=== PATIENT | female | born 1930 | race Caucasian/White ===

== ENCOUNTER 2016-10-05 17:20 | Inpatient (IN) | payer MEDICARE, OTHER, MEDICAID ==
[~2016-10-05] VITALS: Ht 160 cm; Wt 54.5 kg
[2016-10-05] VITALS (7 sets, daily range): BP systolic 196–226; BP diastolic 88–92; PULSE 68–88; RESP 12–26; TEMP 97.6–98.3; O2SAT 96–100
[~2016-10-05 17:20] MED LIST: ACET325 PO; ARIC5TAB PO; DULO20 PO; LISI-360 PO; NAME10TA PO; PROT40TA PO; TRAM50 PO; TRAM50TA PO
--- NOTE | 2016-10-05 18:20 | PD ---
HPI Chief Complaint: GI Complaint Time Seen by Provider: 18:12 Travel History International Travel<30 days: No Contact w/Intl Traveler<30days: No Traveled to known affect area: No History of Present Illness HPI Patient is a 59 female brought in by her son for evaluation of anemia. Per his report 3 months ago patient's hemoglobin was 13 and has been trending down since then. Labs drawn by her primary doctor revealed a hemoglobin of 5.8 the patient was brought to the emergency room for further evaluation. Per her son' s report she has been dizzy, weak and is easily fatigued with ambulation. He states that she has been napping more frequently as well. Son states that she was guaiac positive. Patient is hard of hearing. PFSH Past Medical History Anemia: Yes Arthritis: Yes Cancer: No Cardiovascular Problems: No Diabetes: No Endocrine: No Gastrointestinal Disorders: Yes (GERD, DYSPEPSIA, DYSPHAGIA) Genitourinary: No Hepatitis: No Hiatal Hernia: Yes Hypertension: Yes Immune Disorder: No Musculoskeletal: Yes (scoliosis, kyphosis) Neurologic: Yes (EARLY DEMENTIA) Psychiatric: No Reproductive: No Respiratory: Yes (MILD PULMONARY FIBROSIS) Thyroid Disease: No ?: Not Past Surgical History Abdominal Surgery: Yes (Sai fundoplication, hiatal hernia) AICD: No Body Medical Devices: LUMBAR HARDWARE Cholecystectomy: Yes Eye Surgery: Yes (BUD. CATARACT EXTRACT.) Joint Replacement: Yes (BUD. SHOULDERS, BUD. KNEES) Neurologic Surgery: Yes (MULTI LUMBAR SX'S/ FUSION) Pacemaker: No Other Surgery: Yes Social History Alcohol Use: No Tobacco Use: No Substance Use: No Allergies-Medications (Allergen,Severity, Reaction): Coded Allergies: Fosamax (Unverified Allergy, Severe, ITCH, 10/08/15) Hydrocodone (Unverified Adverse Reaction, Severe, GI SX'S, 10/08/15) Seafood (Unverified Adverse Reaction, Severe, NAUSEA, 10/08/15) Reported Meds & Prescriptions Reported Meds & Active Scripts Active Reported Calcium & Magnesium + Zinc (Potcogx-Smfalypqv-Kzsp) 334-134-5 Mg Tab 1 Tab PO DAILY Lisinopril 10 Mg Tab 10 Mg PO DAILY Centrum Silver Adult 50+ (Multiple Vitamins W/ Minerals) 1 Tab Tab 1 Tab PO DAILY Namenda Xr (Memantine) 28 Mg Caper 28 Mg PO DAILY Tramadol (Tramadol HCl) 50 Mg Tab 50 Mg PO Q4H PRN Pantoprazole (Pantoprazole Sodium) 40 Mg Tab 40 Mg PO BID Donepezil 5 Mg Tab 5 Mg PO HS Cymbalta DR (Duloxetine HCl) 20 Mg Capdr 20 Mg PO DAILY Review of Systems Except as stated in HPI: all other systems reviewed are Neg General / Constitutional: Positive: Other (fatigue) Cardiovascular: Positive: Dyspnea on exertion, No: Chest Pain or Discomfort Respiratory: Positive: Shortness of Breath Gastrointestinal: Positive: Hematochezia, No: Nausea, Vomiting, Abdominal Pain Genitourinary: No: Dysuria Neurologic: Positive: Weakness, Dizziness Physical Exam Narrative GENERAL: Well-developed, well-nourished, elderly female. Resting comfortably in no acute distress. SKIN: Warm and dry. HEAD: Atraumatic. Normocephalic. EYES: Pupils equal and round. No scleral icterus. No injection or drainage. Conjunctival pallor. ENT: No nasal bleeding or discharge. Mucous membranes pink and moist. NECK: Trachea midline. No JVD. CARDIOVASCULAR: Regular rate and rhythm. No murmur appreciated. RESPIRATORY: No accessory muscle use. Coarse breath sounds in bases GASTROINTESTINAL: Abdomen soft, non-tender, nondistended. Hepatic and splenic margins not palpable. MUSCULOSKELETAL: No obvious deformities. No clubbing. No cyanosis. No edema. NEUROLOGICAL: Awake and alert. No obvious cranial nerve deficits. Motor grossly within normal limits. Normal speech. Hard of hearing PSYCHIATRIC: Appropriate mood and affect; insight and judgment normal. Data Data Last Documented VS Vital Signs Date Time Temp Pulse Resp B/P Pulse Ox O2 Delivery O2 Flow Rate FiO2 10/05/16 19:14 66 14 226/92 97 10/05/16 17:26 97.7 Room Air Orders Complete Blood Count With Diff (10/05/16 18:06) Basic Metabolic Panel (Bmp) (10/05/16 18:06) Prothrombin Time / Inr (Pt) (10/05/16 18:06) Act Partial Throm Time (Ptt) (10/05/16 18:06) Type And Screen (10/05/16 18:06) Admit Order (Ed Use Only) (10/05/16 18:44) Red Blood Cells (Rbc) (10/05/16 18:44) Blood Product Administration .UPON TRANSFUSION (10/05/16 18:44) Sodium Chlor 0.9% 250 Ml Inj (Ns 250 Ml (10/05/16 18:45) Inpatient Certification (10/05/16 18:44) Resp Ezpap/Pep Therapy (10/05/16 18:44) Resp Acapella/Pep/Chest Vibra (10/05/16 18:44) Resp Incentive Spirometry (10/05/16 18:44) Magnesium Oxide (Mag-Ox) (10/05/16 18:45) Magnesium Sulfate Inj (Magnesium Sulfate (10/05/16 18:45) Magnesium Sulfate Inj (Magnesium Sulfate (10/05/16 18:45) Potassium Chlor 20 Meq Premix (Kcl 20 Me (10/05/16 18:45) Potassium Chlor 20 Meq Premix (Kcl 20 Me (10/05/16 18:45) Potassium Chlor 40 Meq Premix (Kcl 40 Me (10/05/16 18:45) Potassium Chlor 40 Meq Premix (Kcl 40 Me (10/05/16 18:45) Potassium Cl 40 Meq/30 Ml Liq (Kcl 40 Me (10/05/16 18:45) Potassium Cl 40 Meq/30 Ml Liq (Kcl 40 Me (10/05/16 18:45) Potassium Phosphate (K-Phos) (10/05/16 18:45) Potassium Phosphate (K-Phos) (10/05/16 18:45) Potassium Phosphate Inj (Potassium Phosp (10/05/16 18:45) Sodium Phosphate Inj (Sodium Phosphate I (10/05/16 18:45) ^ Medication Admin Instruction (10/05/16 18:44) ^ Notify Dr: Other (10/05/16 18:44) Bedside Glucose MARYCARMEN.Q6H (10/05/16 18:44) ^ Blood Glucose Goal (Criteria (10/05/16 18:44) ^ Hypoglycemia 51 - 69 Mg/Dl (10/05/16 18:44) ^ Hypoglycemia 50 Mg/Dl Or < (10/05/16 18:44) ^ Notify Dr: Other (10/05/16 18:44) Dextrose 50% In Kelley (Vial) Inj (D50w (Vi (10/05/16 18:45) Insulin Human Reg Supp Scale (Novolin R (10/06/16 00:00) Urinary Catheter Management MARYCARMEN.Q1H (10/05/16 18:44) Cbc No Diff, Includes Plts (10/06/16 05:00) Cbc No Diff, Includes Plts (10/07/16 05:00) Cbc No Diff, Includes Plts (10/08/16 05:00) Cbc No Diff, Includes Plts (10/09/16 05:00) Cbc No Diff, Includes Plts (10/10/16 05:00) Cbc No Diff, Includes Plts (10/11/16 05:00) Cbc No Diff, Includes Plts (10/12/16 05:00) Basic Metabolic Panel (Bmp) (10/06/16 05:00) Basic Metabolic Panel (Bmp) (10/07/16 05:00) Basic Metabolic Panel (Bmp) (10/08/16 05:00) Basic Metabolic Panel (Bmp) (10/09/16 05:00) Basic Metabolic Panel (Bmp) (10/10/16 05:00) Basic Metabolic Panel (Bmp) (10/11/16 05:00) Basic Metabolic Panel (Bmp) (10/12/16 05:00) Code Status (10/05/16 18:44) Vital Signs (Adult) MARYCARMEN.Q1H (10/05/16 18:44) Activity Bed Rest (10/05/16 18:44) ^ Elevate Head Of Bed (10/05/16 18:44) Neuro Checks . ORDERED (10/05/16 18:44) Intake + Output Q1H (10/05/16 18:44) Diet Npo (10/05/16 Dinner) Sodium Chlor 0.9% 1000 Ml Inj (Ns 1000 M (10/05/16 19:00) Sodium Chloride 0.9% Flush (Ns Flush) (10/05/16 18:45) Sodium Chloride 0.9% Flush (Ns Flush) (10/05/16 21:00) Hydromorphone Pf Inj (Dilaudid Pf Inj) (10/05/16 18:45) Pantoprazole Inj (Protonix Inj) (10/05/16 20:00) Ondansetron Inj (Zofran Inj) (10/05/16 18:45) Albuterol-Ipratropium Neb (Duoneb Neb) (10/05/16 18:45) Manager Gallery / Telemetry (10/05/16 18:44) Scd Bilateral/Knee High MARYCARMEN.BID (10/05/16 18:44) Pharmacologic Contraindication (10/05/16 18:44) ^ Initiate Protocol (10/05/16 18:44) ^ Instruction (10/05/16 18:44) [facility] [place] (10/05/16 18:45) Chlorhexidine 2% Cloth (Chlorhexidine 2% (10/06/16 04:00) Chlorhexidine 2% Cloth (Chlorhexidine 2% (10/05/16 18:45) Mrsa Pcr Surveillance (10/05/16 18:44) Hgb & Hct (10/05/16 22:00) Hgb & Hct (10/06/16 02:00) Hgb & Hct (10/06/16 06:00) Hgb & Hct (10/06/16 10:00) Hgb & Hct (10/06/16 14:00) Hgb & Hct (10/06/16 18:00) ^ Consent (10/05/16 19:13) Npo After Midnight W/ Po Meds (10/06/16 Breakfast) ^ Other Nursing Orders (10/05/16 19:15) Magnesium Citrate Liq (Citroma Liq) (10/05/16 19:15) Bisacodyl Ec (Dulcolax Ec) (10/05/16 19:30) Hepatic Functional Panel (10/05/16 19:16) Labs Laboratory Tests Test 10/05/16 18:20 White Blood Count 5.9 TH/MM3 Red Blood Count 2.42 MIL/MM3 Hemoglobin 6.1 GM/DL Hematocrit 19.6 % Mean Corpuscular Volume 81.2 FL Mean Corpuscular Hemoglobin 25.4 PG Mean Corpuscular Hemoglobin 31.3 % Concent Red Cell Distribution Width 16.8 % Platelet Count 351 TH/MM3 Mean Platelet Volume 7.8 FL Neutrophils (%) (Auto) 69.4 % Lymphocytes (%) (Auto) 20.6 % Monocytes (%) (Auto) 9.1 % Eosinophils (%) (Auto) 0.3 % Basophils (%) (Auto) 0.6 % Neutrophils # (Auto) 4.1 TH/MM3 Lymphocytes # (Auto) 1.2 TH/MM3 Monocytes # (Auto) 0.5 TH/MM3 Eosinophils # (Auto) 0.0 TH/MM3 Basophils # (Auto) 0.0 TH/MM3 CBC Comment DIFF FINAL Differential Comment Prothrombin Time 11.1 SEC Prothromb Time International 1.0 RATIO Ratio Activated Partial 25.9 SEC Thromboplast Time Sodium Level 137 MEQ/L Potassium Level 4.3 MEQ/L Chloride Level 102 MEQ/L Carbon Dioxide Level 27.1 MEQ/L Anion Gap 8 MEQ/L Blood Urea Nitrogen 28 MG/DL Creatinine 1.74 MG/DL Estimat Glomerular Filtration 28 ML/MIN Rate Random Glucose 113 MG/DL Calcium Level 8.8 MG/DL MDM Medical Decision Making Medical Screen Exam Complete: Yes Emergency Medical Condition: Yes Medical Record Reviewed: Yes Interpretation(s) Vital Signs Date Time Temp Pulse Resp B/P Pulse Ox O2 Delivery O2 Flow Rate FiO2 10/05/16 17:26 97.7 71 12 218/90 99 Room Air Differential Diagnosis GI bleed versus anemia of chronic disease versus renal failure versus other Narrative Course Patient is an 85-year-old female brought to the emergency for evaluation of anemia. Outpatient hemoglobin was 5.8. Patient has had an abrupt drop in her hemoglobin over the last several weeks. Labs ordered and pending. Dr. Lozano was notified upon patient arrival. He stated at Dr. Henderson, agronomy professor as well as YAW Trimble will evaluate patient emergency department. Discussed in person with Dr. Henderson, agronomy professor who will admit patient to his service, they are concerned due to the abrupt drop in her hemoglobin as well as mental status changes. Dr. Street is also currently evaluating patient in the emergency department. Dr. Henderson is aware of patient's hemoglobin of 6.1. He has placed orders for admission. Diagnosis Primary Impression: Anemia Qualified Code: D64.9 - Anemia, unspecified type Additional Impressions: GI bleed Qualified Code: K92.2 - Gastrointestinal hemorrhage, unspecified gastrointestinal hemorrhage type Mental status change Qualified Code: R41.82 - Altered mental status, unspecified altered mental status type Admitting Information Admitting Physician Requests: Admit Condition: Stable Alisha Gonzalez Cait STARR Oct 05, 2016 18:20
[2016-10-05] MEDS ORDERED: HYDROmorphone HCL PF 1 MG/ML VIAL IV PRN (18:45)
[2016-10-05] MEDS ORDERED: SODIUM CHLOR 0.9% 250 ML INJ 250 ML IV ONE (18:45)
[2016-10-05] MEDS ORDERED: POTASSIUM CHLOR 40 MEQ PREMIX 100 ML IV PRN ×2 (18:45)
[2016-10-05] MEDS ORDERED: POTASSIUM CL 40 MEQ/30 ML LIQ UDC PO/TUBE PRN ×2 (18:45)
[2016-10-05] MEDS ORDERED: POTASSIUM CHLOR 20 MEQ PREMIX 100 ML IV PRN ×2 (18:45)
[2016-10-05] MEDS ORDERED: CHLORHEXIDINE GLUCONATE 2 % 1 PACK (2 CLOTHS) TOP PRN (18:45)
[2016-10-05] MEDS ORDERED: ONDANSETRON HCL 4 MG/2 ML VIAL IV PRN (18:45)
[2016-10-05] MEDS ORDERED: POTASSIUM PHOSPHATE MONOBASIC 500 MG TAB PO PRN (18:45)
[2016-10-05] MEDS ORDERED: DEXTROSE 50% IN WATER 50 ML VIAL(D50) IV PUSH PRN (18:45)
[2016-10-05] MEDS ORDERED: MAGNESIUM SULFATE INJ 2 GM in SODIUM CHLORIDE 0.9% INJ 96 ML IV PRN (18:45)
[2016-10-05] MEDS ORDERED: MISCELLANEOUS NURSING INFORMATION XX SCH (18:45)
[2016-10-05] MEDS ORDERED: RESP: ALBUTEROL 2.5 MG/IPRATROPIUM 0.5 MG NEB (PRN) INH (18:45)
[2016-10-05] MEDS ORDERED: SODIUM PHOSPHATE INJ 30 MMOL in SODIUM CHLOR 0.9% 250 ML INJ 240 ML IV PRN (18:45)
[2016-10-05] MEDS ORDERED: MAGNESIUM OXIDE 400 MG TAB PO PRN (18:45)
[2016-10-05] MEDS ORDERED: POTASSIUM PHOSPHATE INJ 30 MMOL in SODIUM CHLOR 0.9% 250 ML INJ 250 ML IV PRN (18:45)
[2016-10-05] MEDS ORDERED: MAGNESIUM SULFATE INJ 4 GM in SODIUM CHLORIDE 0.9% INJ 92 ML IV PRN (18:45)
[2016-10-05] MEDS ORDERED: POTASSIUM PHOSPHATE MONOBASIC 500 MG TAB PO/TUBE PRN (18:45)
[2016-10-05 18:46] LABS: AUTOMATED NEUTROPHIL # 4.1 TH/MM3 (1.8-7.7); BASOPHIL % 0.6 % (0.0-2.0); EOSINOPHIL % 0.3 % (0.0-4.0); LYMPH % 20.6 % (9.0-44.0); LYMPHOCYTE # 1.2 TH/MM3 (1.0-4.8); MEAN CELL VOLUME 81.2 FL (80.0-100.0); MEAN CORPUSCULAR HEMOGLOBIN 25.4 PG (27.0-34.0); MEAN CORPUSCULAR HGB CONC 31.3 % (32.0-36.0); MONO % 9.1 % (0.0-8.0); NEUT % 69.4 % (16.0-70.0); PLATELET COUNT 351 TH/MM3 (150-450); RED BLOOD COUNT 2.42 MIL/MM3 (4.00-5.30); RED CELL DISTRIBUTION WIDTH 16.8 % (11.6-17.2); WHITE BLOOD COUNT 5.9 TH/MM3 (4.0-11.0)
[2016-10-05 19:02] LABS: APTT (PATIENT) 25.9 SEC (24.3-30.1); PROTHROMBIN TIME - PATIENT 11.1 SEC (9.8-11.6)
[2016-10-05 19:05] LABS: HEMATOCRIT 19.6 % (35.0-46.0); HEMO FLAGS DIFF FINAL
--- NOTE | 2016-10-05 19:08 | HHI.HP ---
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 Today she started having melanotic stools. She went to GI clinic today and was found to reportedly have a Hgb 5.8 , Cr 1.5 (baseline 0.8), BUN 20. The patient is altered and does not have her hearing aids in place, so she cannot participate in the history. However, her son is an event av operator and provides most of the history. she does not have any cardiac history, and has not had any additional recent complaints. Dr. Grant called me and asked that she be direct admitted to the intensive care unit for high concern for an active upper GI bleed. Review of Systems ROS Limitations: Altered Mental Status, Hearing Impaired Past Family Social History Allergies: Coded Allergies: Fosamax (Unverified Allergy, Severe, ITCH, 10/08/15) Hydrocodone (Unverified Adverse Reaction, Severe, GI SX'S, 10/08/15) Seafood (Unverified Adverse Reaction, Severe, NAUSEA, 10/08/15) Past Medical History upper GI bleed hiatal hernia rhumatic lung disease, not on o2 arthritis, bilateral shoulders, bilateral hips GERD HTN Dementia Kyphoscoliosis Past Surgical History recent moshe fundoplication bilateral cataract bilateral shoulder arthroplasties bilateral knee arthroplasty multilevel lumbar fusion Reported Medications Ultram (Tramadol HCl) 50 Mg Tab 50 Mg PO Q6H PRN Cymbalta (Duloxetine HCl) 20 Mg Cap 20 Mg PO DAILY Protonix (Pantoprazole Sodium) 40 Mg Tab 40 Mg PO DAILY Tramadol Hcl (Tramadol HCl) 50 Mg Tab 50 Mg PO Q4H PRN Tylenol (Acetaminophen) 325 Mg Tab 325 Mg PO Q6H PRN Aricept (Donepezil HCl) 5 Mg Tab 5 Mg PO DAILY Namenda (Memantine) 10 Mg Tab 10 Mg PO DAILY Lisinopril 10 mg (Lisinopril) 10 Mg Tab 1 Tab PO DAILY Active Ordered Medications See MAR Family History reviewed and found to be noncontributory to her acute illness Social History denies tob, etoh, doa. Physical Exam Vital Signs Vital Signs Date Time Temp Pulse Resp B/P Pulse Ox O2 Delivery O2 Flow Rate FiO2 10/05/16 17:26 97.7 71 12 218/90 99 Room Air Physical Exam gen: elderly female, lying in bed HEENT: marked pallor. pupils equal, reactive. mucous membranes dry Neck: flat neck veins. trachea midline Chest: equal chest rise, clear to auscultation CV: normal rate, regular rhythm. no appreciable murmurs Abd: soft, nontender, nondistended. no guarding. Extr: no edema. distal pulses 2+ Neuro: RASS -2. follows commands. somnolent but arousable. Laboratory laboratory data are pending. Assessment and Plan Assessment and Plan Assessment: 85yF with history of prior GI bleeds presents with altered mental status and melanotic stools, concern for GI bleed. We will admit to the ICU for close monitoring and serial labs. Given her recent history, I think it is prudent to transfuse 1 unit prbc. Plan: 1. Altered Mental Status -- frequent neuro checks -- likely secondary to GI bleeding and anemia, fatigue -- hold long-acting sedating meds 2. GI bleed -- IV PPI BID -- GI consulted -- 1 unit prbc x 1 now. -- H&H q4h -- NPO -- plan for EGD in AM -- bowel prep 3. Anemia secondary to acute blood loss -- 1 unit prbc -- serial hgb -- goal hgb > 7 -- check coags 4. Dehydration -- NS at 120cc/hr. 5. Acute Kidney Injury -- likely prerenal secondary to dehydration and anemia -- AM BMP -- Crain -- strict I/Os. -- SCDs for DVT prophylaxis. holding pharmacologic DVT prophylaxis given GI bleed. -- protonix for GI prophylaxis. -- Admit to ICU. Code Status Full Code Discussed Condition With Dr. Echevarria, Dr. Parham, family at bedside, bedside RN, SUPERINTENDENT PRESSURE Larry Bingham MD Oct 05, 2016 19:08
[2016-10-05 19:10] LABS: BICARBONATE 27.1 MEQ/L (21.0-32.0); POTASSIUM 4.3 MEQ/L (3.5-5.1)
[2016-10-05] MEDS ORDERED: MULT1TAB PO (19:10)
[2016-10-05] MEDS ORDERED: DONE5TAB7 PO (19:10)
[2016-10-05] MEDS ORDERED: DULO20 PO (19:10)
[2016-10-05] MEDS ORDERED: CALC1TAB53 PO (19:10)
[2016-10-05] MEDS ORDERED: PANT40TA3 PO (19:10)
[2016-10-05] MEDS ORDERED: TRAM50TA PO (19:10)
[2016-10-05] MEDS ORDERED: MEMA28CA PO (19:10)
[2016-10-05] MEDS ORDERED: LISI10TA3 PO (19:10)
[2016-10-05] MEDS ORDERED: BISACODYL EC 5 MG TABEC PO ONE (19:30)
[2016-10-05] MEDS: SODIUM CHLOR 0.9% 1000 ML INJ 1,000 ML IV SCH (19:44)
[2016-10-05] MEDS ORDERED: MAGNESIUM CITRATE SOLN 300 ML BTL PO ONE (19:45)
[2016-10-05] MEDS: PANTOPRAZOLE SODIUM 40 MG VIAL IV SCH (20:43)
[2016-10-05] MEDS: CHLORHEXIDINE GLUCONATE 2 % 1 PACK (2 CLOTHS) TOP SCH (20:43)
[2016-10-05] MEDS: SODIUM CHLORIDE 0.9% FLUSH 5 ML FLUSH IV FLUSH SCH (20:43)
--- NOTE | 2016-10-05 21:12 | MB ---
cc: SHERI MORALES M.D., ALEXANDER S. MD DATE OF CONSULTATION: 10/05/2016 REASON FOR CONSULTATION: Symptomatic anemia. REFERRING PHYSICIAN Dr. Bingham HISTORY OF PRESENT ILLNESS: Ms. Sandy is a very pleasant 85 year-old lady who has no major medical problems, who came to the emergency room for further evaluation of questionable melanotic stools and symptomatic anemia. The patient is hearing impaired at this time does not have her hearing aids. Most of the information is taken from one of her son's who is an hospitality intern. The patient apparently slowly became more weak, short of breath, was noted to be pale in the last few days. Apparently she had a blood count done a few weeks ago with a hemoglobin of 8, which dropped from her baseline which was around 12, which was started to be watched careful. There is also a history of possible weight loss, december 7 to 8 pounds, decreased appetite and oral intake. It is unclear if she had rectal bleed, melanotic stools or any other GI complaints. She had hiatal hernia repair back in September 2015. Apparently at that time she did have an endoscopy and a colonoscopy. Will try to obtain the records from the office. Apparently she recovered well from the surgery with no additional complaints. PAST MEDICAL HISTORY: 1. Large hiatal hernia. 2. High blood pressure. 3. Cataract surgery. 4. Early dementia. 5. Mild pulmonary fibrosis. 6. Reflux. 7. Osteoarthritis. 8. Compression fracture PAST SURGICAL HISTORY Hiatal hernia repair and cholecystectomy, bilateral shoulder repair, bilateral knee replacement. ALLERGIES Fosamax, hydrocodone and seafood. MEDICATIONS At home: 9. Albuterol. 10. Calcium with magnesium. 11. Donepezil. 12. Duloxitane. 13. Lisinopril 14. Namenda 15. Multivitamins. 16. Protonix 17. Tramadol REVIEW OF SYSTEMS Unfortunately cannot be performed properly. The information is taken from the son, so please see history of present illness for details. CLINICAL EXAMINATION She is sitting in bed in no acute distress, pale, frail. VITAL SIGNS: Blood pressure is 110/74, temperature is 97.3, pulse 63, respiratory rate 18. HEENT: PERRLA, pale. Neck: No JVD. No lymphadenopathy. CHEST: Clear to auscultation and palpation. CARDIOVASCULAR: S1-S2, no murmur. ABDOMEN: Soft, nontender. Bowel sounds are present. PERIANESTHESIA NURSE: She is awake, alert, hearing impaired, unable to communicate properly. LABORATORY DATA: Hemoglobin currently is 6.1 with an MCV of 81. A year ago her hemoglobin was 10.8. PT/INR normal. BUN 28, creatinine 1.74. Last year it was 21 and 1.21. No liver enzymes available at this point. Chest x-ray showed minimal bibasilar consistent with scarring, degenerative changes. Scoliosis of the thoracic spine. IMPRESSION: Ms. Sandy is a pleasant 85 year-old lady admitted with symptomatic anemia, questionable GI bleed. The differential includes peptic ulcer disease, telangiectasia, GI malignancy. RECOMMENDATIONS: Upper endoscopy, colonoscopy will be scheduled in the morning as indicate, otherwise Protonix 40 milligrams IV b.i.d., transfuse to keep hemoglobin more than 8, watch H&H closely. Will try to obtain previous endoscopy and colonoscopy report. I would like to thank Dr. Bingham for referring her to our office for consultation. Sheri Morales MD BSB/MATTHEW /7:21 PM /8:54 PM
[2016-10-05 23:18] LABS: INDIRECT BILIRUBIN 0.2 MG/DL (0.0-0.8); TOTAL BILIRUBIN ADULT 0.3 MG/DL (0.2-1.0)
[2016-10-05] MEDS: INSULIN NovoLIN REGULAR SUPPLEMENTAL SCALE SQ SCH (23:26)
[2016-10-05 23:41] LABS: REVIEW FLAG FINAL
[2016-10-05 23:44] LABS: HEMATOCRIT 19.9 % (35.0-46.0)
[2016-10-06] VITALS (16 sets, daily range): BP systolic 169–233; BP diastolic 77–107; PULSE 60–88; RESP 16–28; TEMP 97.8–98.6; O2SAT 96–100
[2016-10-06] MEDS ORDERED: hydrALAZINE HCL 20 MG/ML VIAL IV SCH ×2 (02:30→04:00)
[2016-10-06] MEDS: SODIUM CHLOR 0.9% 1000 ML INJ 1,000 ML IV SCH ×3 (02:45→20:07)
[2016-10-06] MEDS ORDERED: HYDROmorphone HCL PF 1 MG/ML VIAL IV SCH (04:00)
[2016-10-06] MEDS: INSULIN NovoLIN REGULAR SUPPLEMENTAL SCALE SQ SCH ×3 (06:00→18:00)
[2016-10-06] MEDS ORDERED: MAGNESIUM CITRATE SOLN 300 ML BTL PO ONE (06:30)
[2016-10-06] MEDS: hydrALAZINE HCL 20 MG/ML VIAL IV PRN ×6 (07:15→22:47)
[2016-10-06] MEDS: SODIUM CHLORIDE 0.9% FLUSH 5 ML FLUSH IV FLUSH SCH ×2 (08:12→20:09)
[2016-10-06] MEDS: SODIUM CHLORIDE 0.9% FLUSH 5 ML FLUSH IV FLUSH PRN (08:12)
[2016-10-06] MEDS: PANTOPRAZOLE SODIUM 40 MG VIAL IV SCH ×2 (08:12→20:07)
[2016-10-06] MEDS ORDERED: PROMETHAZINE INJ 25 MG/ML VIAL IM ONE (09:30)
[2016-10-06 09:45] LABS: HEMATOCRIT 34.8 % (35.0-46.0); MEAN CELL VOLUME 85.5 FL (80.0-100.0); MEAN CORPUSCULAR HEMOGLOBIN 27.7 PG (27.0-34.0); MEAN CORPUSCULAR HGB CONC 32.4 % (32.0-36.0); PLATELET COUNT 321 TH/MM3 (150-450); RED BLOOD COUNT 4.07 MIL/MM3 (4.00-5.30); REVIEW FLAG FINAL; WHITE BLOOD COUNT 11.2 TH/MM3 (4.0-11.0)
[2016-10-06] MEDS ORDERED: LABETALOL HCL 100 MG/20 ML VIAL IV PUSH PRN (09:45)
[2016-10-06 11:27] LABS: BICARBONATE 29.3 MEQ/L (21.0-32.0)
[2016-10-06 14:23] LABS: HEMATOCRIT 34.5 % (35.0-46.0); REVIEW FLAG FINAL
[2016-10-06] MEDS ORDERED: PROPOFOL 200 MG/20 ML AMP IV ONE (15:44)
[2016-10-06] MEDS ORDERED: DO NOT ADM ANY ANTICOAGULANT DRUGS XX PRN (16:30)
[2016-10-06] MEDS ORDERED: DIATRIZOATE MEGLUM/DIATRIZOATE SOD 9 ML CUP PO ONE (17:00)
[2016-10-06] MEDS ORDERED: SODIUM CHLORID 0.9% 500 ML INJ 500 ML IV ONE (18:15)
--- NOTE | 2016-10-06 21:00 | HHI.CCPN ---
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 Today she started having melanotic stools. She went to GI clinic today and was found to reportedly have a Hgb 5.8 , Cr 1.5 (baseline 0.8), BUN 20. The patient is altered and does not have her hearing aids in place, so she cannot participate in the history. However, her son is an fruit raiser and provides most of the history. she does not have any cardiac history, and has not had any additional recent complaints. Dr. Grant called me and asked that she be direct admitted to the intensive care unit for high concern for an active upper GI bleed. Subjective 10/06: The patient had complaints of nausea unrelieved by Zofran. The patient received Phenergan 6.25mg IM and experienced relief. The patient was noted to have HTN during the day requiring PRN anti-HTN meds.The patient normally takes an ACEI at home, which was held secondary to pending GI procedure with anesthesia Labetalol IV was added to medication regimen. Objective Vital Signs Date Time Temp Pulse Resp B/P Pulse Ox O2 Delivery O2 Flow Rate FiO2 10/06/16 18:00 71 10/06/16 16:55 98.1 12 141/88 99 Nasal Cannula 2 10/05/16 22:09 21 Intake and Output 10/05/16 10/05/16 10/06/16 08:00 16:00 00:00 Intake Total 229 ml Output Total 775 ml Balance -546 ml Result Diagram: 10/06/16 1354 10/06/16 1036 Objective Remarks gen: elderly female, lying in bed HEENT: marked pallor. pupils equal, reactive. mucous membranes dry Neck: flat neck veins. trachea midline Chest: equal chest rise, clear to auscultation CV: normal rate, regular rhythm. no appreciable murmurs Abd: soft, nontender, nondistended. no guarding. Extr: no edema. distal pulses 2+ Neuro: RASS -2. follows commands. somnolent but arousable. Urinary Catheter: Yes Crain insert reason: Measure Accurate Output Vascular Central Line Catheter: No A/P Assessment and Plan Plan: 1. Altered Mental Status-resolved -- Neurochecks per ICU protocol -- GCS 15, responding to questions appropriately, denies pain -- likely secondary to GI bleeding and anemia, fatigue -- Avoid sedatives -Sleep Hygiene 2. GI bleed -- Protonix PPI BID -- GI following Dr. Parham -- S/P 1unit PRBC -- H&H q4h -- NPO -- EGD and Colonoscopy- F/U results --CT abd/Pelvis pending F/U results --Obtain LFT's 3. Anemia secondary to acute blood loss -- 1 unit prbc -- Continue to monitor serial hgb -- Goal maintain Hgb >8 4. Dehydration -- NS at 120cc/hr. 5. Acute Kidney Injury -- likely prerenal secondary to dehydration and anemia --Bolused 500cc NS -- Monitor BMP -- Crain -- strict I/Os. -- SCDs for DVT prophylaxis.No pharmacologic DVT prophylaxis 2/2 GI bleed. -- protonix for GI prophylaxis. 6. HTN --Resume home anti- HTN medication when clinically indicated. CCT 35 mins Physician Joaquina Peters MD Oct 06, 2016 21:00
[2016-10-06 21:36] LABS: HEMATOCRIT 31.9 % (35.0-46.0); REVIEW FLAG FINAL
--- NOTE | 2016-10-06 22:02 | RADRPT ---
EXAM DATE/TIME: 10/06/2016 21:22 [facility] COMPARISON: CHEST SINGLE AP, October 08, 2015, 8:45. INDICATIONS : Melanotic stools and anemia. ORAL CONTRAST: Partial prescribed oral contrast ingested. RADIATION DOSE: 12.41 CTDIvol (mGy) MEDICAL HISTORY : Hernia, hiatal. Hypertension. GI Bleed. SURGICAL HISTORY : Fusion, lumbar. Hiatal hernia repair. ENCOUNTER: Initial ACUITY: 1 day PAIN SCALE: 0/10 LOCATION: Bilateral abdomen TECHNIQUE: Volumetric scanning of the abdomen and pelvis was performed. Using automated exposure control and adjustment of the mA and/or kV according to patient size, radiation dose was kept as low as reasonably achievable to obtain optimal diagnostic quality images. FINDINGS: The liver appears grossly normal. The spleen is small. The pancreas and adrenal glands are unremarkable. There does appear to be global atrophy of the right kidney and compensatory hyper trophy of the left kidney. There is a 2 cm low density mass at the anterior left mid kidney likely r epresenting a focal cyst. Hydronephrosis is not seen. The patient also appears to have a cyst at the lateral right kidney measuring 1.8 cm. Atherosclerotic calcifications are seen throughout the arterial system. There is aneurysmal dilatati on of the distal abdominal aorta measuring 3.3 cm. There does appear to be narrowing of the superior aspect of the ascending colon and hepatic flexure r egion. The transverse colon appears grossly normal. There is some dilatation of the proximal and mi d ascending colon and cecum. A focal mass is not seen. This area appears to be strictured. The smal l bowel is not distended. The structures within the pelvis are grossly intact. There is a Crain catheter in place. There is chr onic interstitial disease at the lung bases. There are degenerative changes throughout the lumbar sp ine. There is a prominent dextrocurvature of the lumbar spine. There is surgical hardware at the lo wer lumbar spine. The bones are osteopenic. CONCLUSION: 1. Apparent narrowing of the distal ascending colon and hepatic flexure region with some dilatation o f the more proximal ascending colon and cecum. This area appears to be possibly strictured. A focal mass is not seen. 2. Degenerative and postoperative change in the lumbar spine. 3. 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 4. Abdominal aortic aneurysm measuring 3.3 cm. There are atherosclerotic calcifications seen through out the arterial system including the coronary arteries. Tommy Stone MD on October 06, 2016 at 21:37 Board Certified Radiologist. This report was verified electronically.
[2016-10-06] MEDS ORDERED: SODIUM CHLORID 0.9% 500 ML INJ 500 ML IV SCH (22:30)
[2016-10-07] VITALS (13 sets, daily range): BP systolic 167–187; BP diastolic 70–87; PULSE 73–102; RESP 18–25; TEMP 98.3–98.7; O2SAT 91–98
[2016-10-07] MEDS: CHLORHEXIDINE GLUCONATE 2 % 1 PACK (2 CLOTHS) TOP SCH (00:09)
[2016-10-07] MEDS: SODIUM CHLOR 0.9% 1000 ML INJ 1,000 ML IV SCH (03:25)
[2016-10-07] MEDS: hydrALAZINE HCL 20 MG/ML VIAL IV PRN ×4 (03:25→21:45)
[2016-10-07] MEDS: INSULIN NovoLIN REGULAR SUPPLEMENTAL SCALE SQ SCH ×4 (05:23→16:59)
[2016-10-07 07:24] LABS: HEMATOCRIT 30.2 % (35.0-46.0); MEAN CELL VOLUME 83.7 FL (80.0-100.0); MEAN CORPUSCULAR HEMOGLOBIN 27.7 PG (27.0-34.0); MEAN CORPUSCULAR HGB CONC 33.1 % (32.0-36.0); PLATELET COUNT 307 TH/MM3 (150-450); RED BLOOD COUNT 3.61 MIL/MM3 (4.00-5.30); RED CELL DISTRIBUTION WIDTH 16.3 % (11.6-17.2); REVIEW FLAG FINAL; WHITE BLOOD COUNT 8.2 TH/MM3 (4.0-11.0)
[2016-10-07 07:36] LABS: BICARBONATE 22.1 MEQ/L (21.0-32.0); MAGNESIUM 2.7 MG/DL (1.5-2.5); POTASSIUM 3.8 MEQ/L (3.5-5.1)
[2016-10-07 07:38] LABS: INDIRECT BILIRUBIN 0.5 MG/DL (0.0-0.8); TOTAL BILIRUBIN ADULT 0.7 MG/DL (0.2-1.0)
[2016-10-07] MEDS: traMADol HCL 50 MG TAB PO PRN (07:57)
[2016-10-07] MEDS: PANTOPRAZOLE SODIUM 40 MG VIAL IV SCH ×2 (07:57→19:51)
[2016-10-07] MEDS: SODIUM CHLORIDE 0.9% FLUSH 5 ML FLUSH IV FLUSH SCH ×2 (09:00→19:51)
[2016-10-07 10:07] LABS: INTERNATIONAL NORMALIZED RATIO 1.1 RATIO; PROTHROMBIN TIME - PATIENT 11.8 SEC (9.8-11.6)
--- NOTE | 2016-10-07 11:30 | HHI.CCPN ---
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 Today she started having melanotic stools. She went to GI clinic today and was found to reportedly have a Hgb 5.8 , Cr 1.5 (baseline 0.8), BUN 20. The patient is altered and does not have her hearing aids in place, so she cannot participate in the history. However, her son is an pcts and provides most of the history. she does not have any cardiac history, and has not had any additional recent complaints. Dr. Grant called me and asked that she be direct admitted to the intensive care unit for high concern for an active upper GI bleed. Subjective 10/06: The patient had complaints of nausea unrelieved by Zofran. The patient received Phenergan 6.25mg IM and experienced relief. The patient was noted to have HTN during the day requiring PRN anti-HTN meds.The patient normally takes an ACEI at home, which was held secondary to pending GI procedure with anesthesia Labetalol IV was added to medication regimen. 10/07 No acute events overnight. Awake an alert. On room air oxygen. Afebrile. H/ H stable Objective Vital Signs Date Time Temp Pulse Resp B/P Pulse Ox O2 Delivery O2 Flow Rate FiO2 10/07/16 06:00 101 10/07/16 04:00 98.4 22 175/70 91 10/06/16 22:47 Nasal Cannula 2.00 10/05/16 22:09 21 Intake and Output 10/06/16 10/06/16 10/07/16 08:00 16:00 00:00 Intake Total 1029 ml 1000 ml 1087 ml Output Total 600 ml 300 ml 100 ml Balance 429 ml 700 ml 987 ml Result Diagram: 10/07/16 0600 10/07/16 0600 Other Results Laboratory Tests Test 10/06/16 10/06/16 10/07/16 10/07/16 13:54 21:15 06:00 09:19 Hemoglobin 11.3 GM/DL 10.5 GM/DL 10.0 GM/DL Hematocrit 34.5 % 31.9 % 30.2 % White Blood Count 8.2 TH/MM3 Red Blood Count 3.61 MIL/MM3 Mean Corpuscular Volume 83.7 FL Mean Corpuscular Hemoglobin 27.7 PG Mean Corpuscular Hemoglobin 33.1 % Concent Red Cell Distribution Width 16.3 % Platelet Count 307 TH/MM3 Mean Platelet Volume 8.1 FL Sodium Level 139 MEQ/L Potassium Level 3.8 MEQ/L Chloride Level 107 MEQ/L Carbon Dioxide Level 22.1 MEQ/L Anion Gap 10 MEQ/L Blood Urea Nitrogen 22 MG/DL Creatinine 1.34 MG/DL Estimat Glomerular Filtration 38 ML/MIN Rate Random Glucose 110 MG/DL Calcium Level 8.6 MG/DL Phosphorus Level 3.1 MG/DL Magnesium Level 2.7 MG/DL Total Bilirubin 0.7 MG/DL Direct Bilirubin 0.2 MG/DL Indirect Bilirubin 0.5 MG/DL Aspartate Amino Transf 21 U/L (AST/SGOT) Alanine Aminotransferase 20 U/L (ALT/SGPT) Alkaline Phosphatase 57 U/L Total Protein 6.8 GM/DL Albumin 3.3 GM/DL Folate GREATER THAN 20.0 NG/ML Prothrombin Time 11.8 SEC Prothromb Time International 1.1 RATIO Ratio Carcinoembryonic Antigen 1.6 NG/ML Imaging Last Impressions Abdomen/Pelvis CT 10/06/16 0000 Signed Impressions: Service Date/Time: September 21:22 - CONCLUSION: 1. Apparent narrowing of the distal ascending colon and hepatic flexure region with some dilatation of the more proximal ascending colon and cecum. This area appears to be possibly strictured. A focal mass is not seen. 2. Degenerative and postoperative change in the lumbar spine. 3. 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 4. Abdominal aortic aneurysm measuring 3.3 cm. There are atherosclerotic calcifications seen throughout the arterial system including the coronary arteries. Tommy Stone MD Objective Remarks GENERAL: Patient is lying in bed in NAD SKIN: Warm and dry. HEAD: Normocephalic. EYES: No scleral icterus. No injection or drainage. NECK: Supple, trachea midline. No JVD or lymphadenopathy. CARDIOVASCULAR: Regular rate and rhythm without murmurs, gallops, or rubs. RESPIRATORY: Breath sounds equal bilaterally. No accessory muscle use. GASTROINTESTINAL: Abdomen soft, non-tender, nondistended. MUSCULOSKELETAL: No cyanosis, or edema. Neuro: Awake and alert A/P Assessment and Plan 1)Resp Insuff 2)Altered Mental Status-resolved 3)GI bleed 4)Anemia 5)HTN 6)DWAIN- improved. --Likely prerenal secondary to dehydration and anemia Plan Neuro: Monitor neuro status and avoid sedatives -- Neurochecks per ICU protocol -- GCS 15, responding to questions appropriately, denies pain Pulm: Oxygen PRN to keep sat >92% CV: Place on Lopressor 12.5mg Q!2- Monitor HR and BP keep MAP>65mmHg : Monitor renal function, I/O's, electrolytes replacement per protocol d/c IVF GI: On PO diet, Protonix 40mg IV Q12 GI is following. s/p EGD/colonoscopy( followup on results) Heme: Monitor CBC -- S/P 1unit PRBC Endo: SSI if needed for glycemic control -- SCDs for DVT prophylaxis.No pharmacologic DVT prophylaxis 2nd GI bleed. -- Protonix for GI prophylaxis. PT/OT eval and treat Will sign off and transfer care to [facility] Level 3 Blu Casillas MD Oct 07, 2016 11:30
--- NOTE | 2016-10-07 15:31 | HHI.GIFU ---
GI Follow-up Note Consult Follow-up Subjective: Patient laying in bed comfortably, no bleeding , ct noted.In chair , no complaints, poor appetite Objective: PHYSICAL EXAMINATION: Vitals signs stable No fever Vital Signs Date Time Temp Pulse Resp B/P Pulse Ox O2 Delivery O2 Flow Rate FiO2 10/07/16 14:00 91 10/07/16 12:00 84 10/07/16 12:00 98.6 84 20 171/74 98 10/07/16 10:00 98 10/07/16 08:00 98.7 102 18 167/76 95 10/07/16 08:00 Nasal Cannula 2.00 HEENT: Pupils round and reactive to light; normocephalic; atraumatic; no jaundice. Throat is clear. NECK: Neck is supple, no JVD, no lymphadenopathy. CHEST: Chest is clear to auscultation and percussion. CARDIAC: Regular rate and rhythm with no murmur gallop or rubs. ABDOMEN: Soft, nondistended, nontender; no hepatosplenomegaly; bowel sounds are present in all four quadrants. EXTREMITIES: No clubbing, cyanosis, or edema. SKIN: Normal; no rash; no jaundice. PUMPMAN: No focal deficits; Available Data (labs, X- Rays, Procedues) : Laboratory Tests Test 10/05/16 10/05/16 10/05/16 10/05/16 18:18 18:20 19:23 20:05 Antibody Identification Anti-M White Blood Count 5.9 TH/MM3 Red Blood Count 2.42 MIL/MM3 Hemoglobin 6.1 GM/DL Hematocrit 19.6 % Mean Corpuscular Volume 81.2 FL Mean Corpuscular Hemoglobin 25.4 PG Mean Corpuscular Hemoglobin 31.3 % Concent Red Cell Distribution Width 16.8 % Platelet Count 351 TH/MM3 Mean Platelet Volume 7.8 FL Neutrophils (%) (Auto) 69.4 % Lymphocytes (%) (Auto) 20.6 % Monocytes (%) (Auto) 9.1 % Eosinophils (%) (Auto) 0.3 % Basophils (%) (Auto) 0.6 % Neutrophils # (Auto) 4.1 TH/MM3 Lymphocytes # (Auto) 1.2 TH/MM3 Monocytes # (Auto) 0.5 TH/MM3 Eosinophils # (Auto) 0.0 TH/MM3 Basophils # (Auto) 0.0 TH/MM3 CBC Comment DIFF FINAL Differential Comment Prothrombin Time 11.1 SEC Prothromb Time International 1.0 RATIO Ratio Activated Partial 25.9 SEC Thromboplast Time Sodium Level 137 MEQ/L Potassium Level 4.3 MEQ/L Chloride Level 102 MEQ/L Carbon Dioxide Level 27.1 MEQ/L Anion Gap 8 MEQ/L Blood Urea Nitrogen 28 MG/DL Creatinine 1.74 MG/DL Estimat Glomerular Filtration 28 ML/MIN Rate Random Glucose 113 MG/DL Calcium Level 8.8 MG/DL Total Bilirubin 0.3 MG/DL Direct Bilirubin 0.1 MG/DL Indirect Bilirubin 0.2 MG/DL Aspartate Amino Transf 9 U/L (AST/SGOT) Alanine Aminotransferase 14 U/L (ALT/SGPT) Alkaline Phosphatase 54 U/L Total Protein 7.2 GM/DL Albumin 3.6 GM/DL Blood Type A POSITIVE A POSITIVE Antibody Screen POSITIVE Antigen Identification M Antigen - NEGATIVE Crossmatch Leukocyte-Reduced Leukocyte-Reduced Red Blood Red Blood Cells Cells Blood Bank Comment Nasal Screen MRSA (PCR) NEGATIVE Test 10/05/16 10/06/16 10/06/16 10/06/16 23:17 02:24 08:30 10:36 Hemoglobin 6.4 GM/DL 11.3 GM/DL Hematocrit 19.9 % 34.8 % Blood Type A POSITIVE Crossmatch Leukocyte-Reduced Red Blood Cells Blood Bank Comment White Blood Count 11.2 TH/MM3 Red Blood Count 4.07 MIL/MM3 Mean Corpuscular Volume 85.5 FL Mean Corpuscular Hemoglobin 27.7 PG Mean Corpuscular Hemoglobin 32.4 % Concent Red Cell Distribution Width 16.0 % Platelet Count 321 TH/MM3 Mean Platelet Volume 8.4 FL Sodium Level 138 MEQ/L Potassium Level 4.0 MEQ/L Chloride Level 103 MEQ/L Carbon Dioxide Level 29.3 MEQ/L Anion Gap 6 MEQ/L Blood Urea Nitrogen 23 MG/DL Creatinine 1.38 MG/DL Estimat Glomerular Filtration 36 ML/MIN Rate Random Glucose 153 MG/DL Calcium Level 8.6 MG/DL Test 10/06/16 10/06/16 10/07/16 10/07/16 13:54 21:15 06:00 09:19 Hemoglobin 11.3 GM/DL 10.5 GM/DL 10.0 GM/DL Hematocrit 34.5 % 31.9 % 30.2 % White Blood Count 8.2 TH/MM3 Red Blood Count 3.61 MIL/MM3 Mean Corpuscular Volume 83.7 FL Mean Corpuscular Hemoglobin 27.7 PG Mean Corpuscular Hemoglobin 33.1 % Concent Red Cell Distribution Width 16.3 % Platelet Count 307 TH/MM3 Mean Platelet Volume 8.1 FL Sodium Level 139 MEQ/L Potassium Level 3.8 MEQ/L Chloride Level 107 MEQ/L Carbon Dioxide Level 22.1 MEQ/L Anion Gap 10 MEQ/L Blood Urea Nitrogen 22 MG/DL Creatinine 1.34 MG/DL Estimat Glomerular Filtration 38 ML/MIN Rate Random Glucose 110 MG/DL Calcium Level 8.6 MG/DL Phosphorus Level 3.1 MG/DL Magnesium Level 2.7 MG/DL Total Bilirubin 0.7 MG/DL Direct Bilirubin 0.2 MG/DL Indirect Bilirubin 0.5 MG/DL Aspartate Amino Transf 21 U/L (AST/SGOT) Alanine Aminotransferase 20 U/L (ALT/SGPT) Alkaline Phosphatase 57 U/L Total Protein 6.8 GM/DL Albumin 3.3 GM/DL Folate GREATER THAN 20.0 NG/ML Prothrombin Time 11.8 SEC Prothromb Time International 1.1 RATIO Ratio Carcinoembryonic Antigen 1.6 NG/ML ASSESSMENT/PLAN: symptomatic anemia -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 Thank you for this consult. Entered by: Sheri Short MD Oct 07, 2016 15:31
[2016-10-07] MEDS: METOPROLOL TARTRATE 25 MG TAB PO SCH (19:50)
[2016-10-08] VITALS (12 sets, daily range): BP systolic 120–187; BP diastolic 66–94; PULSE 55–78; RESP 19–30; TEMP 97.5–98.9; O2SAT 92–98
[2016-10-08] MEDS: INSULIN NovoLIN REGULAR SUPPLEMENTAL SCALE SQ SCH ×4 (00:34→18:00)
[2016-10-08] MEDS: CHLORHEXIDINE GLUCONATE 2 % 1 PACK (2 CLOTHS) TOP SCH (04:00)
[2016-10-08] MEDS: traMADol HCL 50 MG TAB PO PRN (06:16)
[2016-10-08 07:35] LABS: AUTOMATED NEUTROPHIL # 7.8 TH/MM3 (1.8-7.7); BASOPHIL % 0.2 % (0.0-2.0); EOSINOPHIL % 0.1 % (0.0-4.0); HEMATOCRIT 30.3 % (35.0-46.0); HEMO FLAGS DIFF FINAL; LYMPH % 12.9 % (9.0-44.0); LYMPHOCYTE # 1.3 TH/MM3 (1.0-4.8); MEAN CELL VOLUME 84.1 FL (80.0-100.0); MEAN CORPUSCULAR HEMOGLOBIN 27.7 PG (27.0-34.0); MEAN CORPUSCULAR HGB CONC 32.9 % (32.0-36.0); MONO % 11.5 % (0.0-8.0); NEUT % 75.3 % (16.0-70.0); PLATELET COUNT 324 TH/MM3 (150-450); RED CELL DISTRIBUTION WIDTH 16.7 % (11.6-17.2); WHITE BLOOD COUNT 10.3 TH/MM3 (4.0-11.0)
[2016-10-08 08:03] LABS: BICARBONATE 24.8 MEQ/L (21.0-32.0); POTASSIUM 3.4 MEQ/L (3.5-5.1)
[2016-10-08] MEDS: SODIUM CHLORIDE 0.9% FLUSH 5 ML FLUSH IV FLUSH SCH ×2 (08:28→20:02)
[2016-10-08] MEDS: METOPROLOL TARTRATE 25 MG TAB PO SCH ×2 (08:28→20:02)
[2016-10-08] MEDS: PANTOPRAZOLE SODIUM 40 MG VIAL IV SCH ×2 (08:28→20:03)
--- NOTE | 2016-10-08 08:29 | HHI.PR ---
Subjective Remarks Follow-up anemia, GI bleed. The patient states that she is tired and cold. No other complaints at this time. No events overnight per nursing. Objective Vitals Vital Signs Date Time Temp Pulse Resp B/P Pulse Ox O2 Delivery O2 Flow Rate FiO2 10/08/16 07:16 95 10/08/16 06:00 73 10/08/16 04:00 69 10/08/16 04:00 98.5 65 30 150/93 94 10/08/16 02:00 73 10/08/16 00:00 70 10/08/16 00:00 98.9 70 27 171/83 94 10/07/16 22:00 73 10/07/16 20:30 96 21 10/07/16 20:00 98.6 92 25 187/86 93 10/07/16 20:00 92 10/07/16 18:00 82 10/07/16 16:00 81 10/07/16 16:00 98.3 87 22 187/87 97 10/07/16 14:00 91 10/07/16 12:00 84 10/07/16 12:00 98.6 84 20 171/74 98 10/07/16 10:00 98 I/O 10/07/16 10/07/16 10/07/16 10/08/16 10/08/16 10/08/16 07:00 15:00 23:00 07:00 15:00 23:00 Intake Total 809 ml 446 ml Output Total 250 ml 300 ml 250 ml 275 ml Balance 559 ml 146 ml -250 ml -275 ml Intake Oral 210 ml IV Total 809 ml 236 ml Output Urine Total 250 ml 300 ml 250 ml 275 ml Result Diagram: 10/08/16 0553 10/08/16 0553 Imaging Last Impressions Abdomen/Pelvis CT 10/06/16 0000 Signed Impressions: Service Date/Time: September 21:22 - CONCLUSION: 1. Apparent narrowing of the distal ascending colon and hepatic flexure region with some dilatation of the more proximal ascending colon and cecum. This area appears to be possibly strictured. A focal mass is not seen. 2. Degenerative and postoperative change in the lumbar spine. 3. 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 4. Abdominal aortic aneurysm measuring 3.3 cm. There are atherosclerotic calcifications seen throughout the arterial system including the coronary arteries. Tommy Stone MD Objective Remarks General: Elderly female in no acute distress. Hard of hearing. Heart: Regular rate and rhythm. No murmur. Lungs: Clear to auscultation bilaterally. No wheezes, rales, or rhonchi. Breathing is nonlabored. Abdomen: Soft, nontender, nondistended. Extremities: No lower extremity edema. Psych: Alert, confused. Urinary Catheter: No Vascular Central Line Catheter: No A/P Problem List: (1) GI bleed ICD Code: K92.2 Status: Acute (2) Anemia ICD Code: D64.9 Status: Acute (3) Hypertension ICD Code: I10 Status: Chronic (4) Acute kidney injury ICD Code: N17.9 Status: Acute Assessment and Plan 1. GI bleed, anemia: Appreciate gastroenterology recommendations. Status post transfusion of total of 3 units PRBCs during this hospitalization. Hemoglobin is stable. Continue Protonix. Status post EGD/colonoscopy. 2. Altered mental status: Patient 3. Hypertension: Continue Lopressor. 4. Acute kidney injury: Likely prerenal secondary to dehydration, anemia. Improved. 5. DVT prophylaxis: SCDs. Avoid chemical prophylaxis secondary to GI bleed. Discharge Planning Discussed with the patient's son. Will transfer out of ICU today and plan for likely discharge home tomorrow if she remains stable. Problem Qualifiers (1) GI bleed: Qualified Code: K92.2 - Gastrointestinal hemorrhage, unspecified gastrointestinal hemorrhage type (2) Anemia: Qualified Code: D64.9 - Anemia, unspecified type Rafa Burns MD Oct 08, 2016 08:29
[2016-10-08 09:09] LABS: FERRITIN 30 NG/ML (8-252)
[2016-10-08] MEDS ORDERED: POTASSIUM CHLORIDE 25 MEQ EFFERVESCENT TAB PO ONE (09:30)
[2016-10-08] MEDS: MEMANTINE 28 MG PO SCH (12:00)
--- NOTE | 2016-10-08 12:17 | HHI.GIFU ---
GI Follow-up Note Consult Follow-up Subjective: Patient laying in bed comfortably, no new complains, poor oral intake.No bleeding, hb stable Objective: PHYSICAL EXAMINATION: Vitals signs stable No fever Vital Signs Date Time Temp Pulse Resp B/P Pulse Ox O2 Delivery O2 Flow Rate FiO2 10/08/16 10:00 67 10/08/16 08:00 78 10/08/16 08:00 97.6 69 24 187/89 92 10/08/16 07:16 95 10/08/16 06:00 73 HEENT: Pupils round and reactive to light; normocephalic; atraumatic; no jaundice. Throat is clear. NECK: Neck is supple, no JVD, no lymphadenopathy. CHEST: Chest is clear to auscultation and percussion. CARDIAC: Regular rate and rhythm with no murmur gallop or rubs. ABDOMEN: Soft, nondistended, nontender; no hepatosplenomegaly; bowel sounds are present in all four quadrants. EXTREMITIES: No clubbing, cyanosis, or edema. SKIN: Normal; no rash; no jaundice. [employer]: No focal deficits; does not hear well, difficult communication Available Data (labs, X- Rays, Procedues) : Laboratory Tests Test 10/06/16 10/06/16 10/07/16 10/07/16 13:54 21:15 06:00 09:19 Hemoglobin 11.3 GM/DL 10.5 GM/DL 10.0 GM/DL Hematocrit 34.5 % 31.9 % 30.2 % White Blood Count 8.2 TH/MM3 Red Blood Count 3.61 MIL/MM3 Mean Corpuscular Volume 83.7 FL Mean Corpuscular Hemoglobin 27.7 PG Mean Corpuscular Hemoglobin 33.1 % Concent Red Cell Distribution Width 16.3 % Platelet Count 307 TH/MM3 Mean Platelet Volume 8.1 FL Sodium Level 139 MEQ/L Potassium Level 3.8 MEQ/L Chloride Level 107 MEQ/L Carbon Dioxide Level 22.1 MEQ/L Anion Gap 10 MEQ/L Blood Urea Nitrogen 22 MG/DL Creatinine 1.34 MG/DL Estimat Glomerular Filtration 38 ML/MIN Rate Random Glucose 110 MG/DL Calcium Level 8.6 MG/DL Phosphorus Level 3.1 MG/DL Magnesium Level 2.7 MG/DL Total Bilirubin 0.7 MG/DL Direct Bilirubin 0.2 MG/DL Indirect Bilirubin 0.5 MG/DL Aspartate Amino Transf 21 U/L (AST/SGOT) Alanine Aminotransferase 20 U/L (ALT/SGPT) Alkaline Phosphatase 57 U/L Total Protein 6.8 GM/DL Albumin 3.3 GM/DL Folate GREATER THAN 20.0 NG/ML Prothrombin Time 11.8 SEC Prothromb Time International 1.1 RATIO Ratio Carcinoembryonic Antigen 1.6 NG/ML Test 10/08/16 05:53 White Blood Count 10.3 TH/MM3 Red Blood Count 3.60 MIL/MM3 Hemoglobin 10.0 GM/DL Hematocrit 30.3 % Mean Corpuscular Volume 84.1 FL Mean Corpuscular Hemoglobin 27.7 PG Mean Corpuscular Hemoglobin 32.9 % Concent Red Cell Distribution Width 16.7 % Platelet Count 324 TH/MM3 Mean Platelet Volume 8.2 FL Neutrophils (%) (Auto) 75.3 % Lymphocytes (%) (Auto) 12.9 % Monocytes (%) (Auto) 11.5 % Eosinophils (%) (Auto) 0.1 % Basophils (%) (Auto) 0.2 % Neutrophils # (Auto) 7.8 TH/MM3 Lymphocytes # (Auto) 1.3 TH/MM3 Monocytes # (Auto) 1.2 TH/MM3 Eosinophils # (Auto) 0.0 TH/MM3 Basophils # (Auto) 0.0 TH/MM3 CBC Comment DIFF FINAL Differential Comment Sodium Level 140 MEQ/L Potassium Level 3.4 MEQ/L Chloride Level 105 MEQ/L Carbon Dioxide Level 24.8 MEQ/L Anion Gap 10 MEQ/L Blood Urea Nitrogen 24 MG/DL Creatinine 1.39 MG/DL Estimat Glomerular Filtration 36 ML/MIN Rate Random Glucose 90 MG/DL Calcium Level 8.7 MG/DL Iron Level 58 MCG/DL Ferritin 30 NG/ML Vitamin B12 Level 1141 PG/ML ASSESSMENT/PLAN: symptomatic anemia-secondary gastric AVM's, GAVE-s/pAPC s/p hiatal hernia questionable stricture in colon on CT-colonoscopy did not suggest that, some stool was present in colon possible obscuring small lesions Recommendations ok to dc home from gi point on iron supplements cbc in 1 week capsule endoscopy op egd/colon in8-12 weeks based on the above results discussed with family -son Dr.John Sandy gi will sign off It was a pleasure seeing Deirdre Sandy. Thank you for this consult. Entered by: Sheri Short MD Oct 08, 2016 12:17
[2016-10-08] MEDS: MEMANTINE HCL 10 MG TAB PO SCH ×2 (16:30→20:02)
[2016-10-08] MEDS ORDERED: DONEPEZIL HCL 5 MG TAB PO SCH (21:00)
[2016-10-09] VITALS: BP 159/68; PULSE 57; RESP 19; TEMP 98.8; O2SAT 95
[2016-10-09 04:00] VITALS: BP 159/67; PULSE 56; PULSE 59; RESP 20; TEMP 98.3; O2SAT 95
[2016-10-09] MEDS: CHLORHEXIDINE GLUCONATE 2 % 1 PACK (2 CLOTHS) TOP SCH (04:00)
[2016-10-09] MEDS: INSULIN NovoLIN REGULAR SUPPLEMENTAL SCALE SQ SCH ×3 (06:00→12:00)
--- NOTE | 2016-10-09 07:37 | HHI.PR ---
Subjective Remarks Follow-up anemia, GI bleed, hypokalemia. The patient states that she does not feel good today. She has a headache. No other specific complaints at this time. Objective Vitals Vital Signs Date Time Temp Pulse Resp B/P Pulse Ox O2 Delivery O2 Flow Rate FiO2 10/09/16 04:00 56 10/09/16 04:00 98.3 59 20 159/67 95 10/09/16 00:00 98.8 57 19 159/68 95 10/09/16 00:00 57 10/08/16 20:00 98.7 62 19 157/66 95 10/08/16 20:00 62 10/08/16 19:48 98 21 10/08/16 16:00 97.5 55 26 120/94 94 10/08/16 16:00 65 10/08/16 14:00 58 10/08/16 12:00 59 10/08/16 12:00 97.6 59 22 160/72 94 10/08/16 10:00 67 10/08/16 08:00 78 10/08/16 08:00 97.6 69 24 187/89 92 I/O 10/08/16 10/08/16 10/08/16 10/09/16 10/09/16 10/09/16 07:00 15:00 23:00 07:00 15:00 23:00 Intake Total 120 ml Output Total 275 ml 150 ml 200 ml Balance -275 ml -30 ml -200 ml Intake Oral 120 ml Output Urine Total 275 ml 150 ml 200 ml # Voids 1 Result Diagram: 10/08/16 0553 10/08/16 0553 Imaging Last Impressions Abdomen/Pelvis CT 10/06/16 0000 Signed Impressions: Service Date/Time: September 21:22 - CONCLUSION: 1. Apparent narrowing of the distal ascending colon and hepatic flexure region with some dilatation of the more proximal ascending colon and cecum. This area appears to be possibly strictured. A focal mass is not seen. 2. Degenerative and postoperative change in the lumbar spine. 3. 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 4. Abdominal aortic aneurysm measuring 3.3 cm. There are atherosclerotic calcifications seen throughout the arterial system including the coronary arteries. Tommy Stone MD Objective Remarks General: Elderly female in no acute distress. Hard of hearing. Heart: Regular rate and rhythm. No murmur. Lungs: Clear to auscultation bilaterally. No wheezes, rales, or rhonchi. Breathing is nonlabored. Abdomen: Soft, nontender, nondistended. Extremities: No lower extremity edema. Psych: Alert, confused. Procedures None Urinary Catheter: No Vascular Central Line Catheter: No A/P Problem List: (1) GI bleed ICD Code: K92.2 Status: Acute (2) Anemia ICD Code: D64.9 Status: Acute (3) Hypertension ICD Code: I10 Status: Chronic (4) Acute kidney injury ICD Code: N17.9 Status: Acute Assessment and Plan 1. GI bleed, anemia: Appreciate gastroenterology recommendations. Status post transfusion of total of 3 units PRBCs during this hospitalization. Hemoglobin is stable. Continue Protonix. Status post EGD/colonoscopy. Labs are pending this morning. 2. Altered mental status: Patient 3. Hypertension: Continue Lopressor. 4. Acute kidney injury: Likely prerenal secondary to dehydration, anemia. Improved. 5. DVT prophylaxis: SCDs. Avoid chemical prophylaxis secondary to GI bleed. 6. Mild hypokalemia: Supplemented yesterday. Labs are pending this morning. 7. Headache: Add Tylenol as needed. Discharge Planning Cleared for discharge by GI. Discussed with the patient's son yesterday. The family plans to take the patient home instead of her going to SNF/rehab. Will plan to discharge home later today if labs are stable and arrangements can be made for safe discharge. Problem Qualifiers (1) GI bleed: Qualified Code: K92.2 - Gastrointestinal hemorrhage, unspecified gastrointestinal hemorrhage type (2) Anemia: Qualified Code: D64.9 - Anemia, unspecified type Rafa Burns MD Oct 09, 2016 07:37
[2016-10-09 07:40] LABS: HEMATOCRIT 33.7 % (35.0-46.0); MEAN CELL VOLUME 84.6 FL (80.0-100.0); MEAN CORPUSCULAR HEMOGLOBIN 27.7 PG (27.0-34.0); MEAN CORPUSCULAR HGB CONC 32.8 % (32.0-36.0); PLATELET COUNT 302 TH/MM3 (150-450); RED BLOOD COUNT 3.99 MIL/MM3 (4.00-5.30); RED CELL DISTRIBUTION WIDTH 16.8 % (11.6-17.2); REVIEW FLAG FINAL; WHITE BLOOD COUNT 7.5 TH/MM3 (4.0-11.0)
[2016-10-09 08:00] VITALS: BP 189/86; PULSE 56; RESP 19; TEMP 98.4; O2SAT 93; O2SAT 98
[2016-10-09] MEDS: ACETAMINOPHEN 500 MG CPLT PO PRN ×2 (08:16→15:24)
[2016-10-09] MEDS: MEMANTINE HCL 10 MG TAB PO SCH (08:16)
[2016-10-09] MEDS: SODIUM CHLORIDE 0.9% FLUSH 5 ML FLUSH IV FLUSH SCH (08:16)
[2016-10-09] MEDS: SODIUM CHLORIDE 0.9% FLUSH 5 ML FLUSH IV FLUSH PRN (08:16)
[2016-10-09] MEDS: PANTOPRAZOLE SODIUM 40 MG VIAL IV SCH (08:16)
[2016-10-09] MEDS: MEMANTINE 28 MG PO SCH (08:17)
[2016-10-09 08:18] LABS: BICARBONATE 27.4 MEQ/L (21.0-32.0); POTASSIUM 3.5 MEQ/L (3.5-5.1)
--- NOTE | 2016-10-09 08:47 | HHI.DCPOC ---
Discharge Care Plan Diagnosis: (1) Acute kidney injury (2) GI bleed (3) Hypertension (4) Mental status change (5) Anemia Goals to Promote Your Health * To prevent worsening of your condition and complications * To maintain your health at the optimal level Directions to Meet Your Goals Take your medications as prescribed Follow your dietary instruction Follow activity as directed Keep your appointments as scheduled Take your immunizations and boosters as scheduled If your symptoms worsen call your PCP, if no PCP go to Urgent Care Center or Emergency Room Smoking is Dangerous to Your Health. Avoid second hand smoke Call the 24-hour hour crisis hotline for domestic abuse at Rafa Burns MD Oct 09, 2016 08:47
[2016-10-09] MEDS ORDERED: FERR325T PO (08:48)
[2016-10-09] MEDS ORDERED: MULTIVITAMIN HEMATINIC THERAPEUTIC TAB PO SCH (09:00)
[2016-10-09] MEDS ORDERED: DULoxetine HCl DR 20 MG CAP PO SCH (09:00)
[2016-10-09] MEDS: METOPROLOL TARTRATE 25 MG TAB PO SCH (09:00)
[2016-10-09] MEDS ORDERED: LISINOPRIL 10 MG TAB PO SCH (09:00)
[2016-10-09 12:00] VITALS: BP 166/77; PULSE 62; RESP 18; TEMP 98.1; O2SAT 93
[2016-10-09] MEDS: traMADol HCL 50 MG TAB PO PRN (12:40)
--- NOTE | 2016-10-09 15:25 | RADRPT ---
EXAM DATE/TIME: 10/09/2016 15:04 [facility] COMPARISON: No previous studies available for comparison. INDICATIONS : Cephalgia. RADIATION DOSE: 42.43 CTDIvol (mGy) MEDICAL HISTORY : Hypertension. SURGICAL HISTORY : Cholecystectomy. ENCOUNTER: Initial ACUITY: 1 day PAIN SCALE: 5/10 LOCATION: cranial TECHNIQUE: Multiple contiguous axial images were obtained of the head. Using automated exposure control and adj ustment of the mA and/or kV according to patient size, radiation dose was kept as low as reasonably a chievable to obtain optimal diagnostic quality images. FINDINGS: CEREBRUM: Prominence of the ventricles, sulci, and cisterns indicating age-appropriate diffuse atrophy. No neil dence of midline shift, mass lesion, hemorrhage or acute infarction. No extra-axial fluid collection s are seen. POSTERIOR FOSSA: The cerebellum and brainstem are intact. The 4th ventricle is midline. The cerebellopontine angle i s unremarkable. EXTRACRANIAL: The visualized portion of the orbits is intact. SKULL: The calvaria is intact. No evidence of skull fracture. CONCLUSION: No acute intracranial findings. Nomi Kincaid MD on October 09, 2016 at 15:22 Board Certified Radiologist. This report was verified electronically.
--- NOTE | 2016-10-09 15:50 | HHI.DS ---
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 Today she started having melanotic stools. She went to GI clinic today and was found to reportedly have a Hgb 5.8 , Cr 1.5 (baseline 0.8), BUN 20. The patient is altered and does not have her hearing aids in place, so she cannot participate in the history. However, her son is an billing coordinator and provides most of the history. she does not have any cardiac history, and has not had any additional recent complaints. Dr. Grant called me and asked that she be direct admitted to the intensive care unit for high concern for an active upper GI bleed. CBC/BMP: 10/09/16 0535 10/09/16 0535 Significant Findings Laboratory Tests Test 10/06/16 10/07/16 10/07/16 10/08/16 21:15 06:00 09:19 05:53 Hemoglobin 10.5 GM/DL 10.0 GM/DL 10.0 GM/DL (11.6-15.3) (11.6-15.3) (11.6-15.3) Hematocrit 31.9 % 30.2 % 30.3 % (35.0-46.0) (35.0-46.0) (35.0-46.0) Red Blood Count 3.61 MIL/MM3 3.60 MIL/MM3 (4.00-5.30) (4.00-5.30) Blood Urea Nitrogen 22 MG/DL (7-18) 24 MG/DL (7-18) Creatinine 1.34 MG/DL 1.39 MG/DL (0.50-1.00) (0.50-1.00) Estimat Glomerular Filtration 38 ML/MIN (>89) 36 ML/MIN (>89) Rate Random Glucose 110 MG/DL (74-106) Magnesium Level 2.7 MG/DL (1.5-2.5) Albumin 3.3 GM/DL (3.4-5.0) Folate GREATER THAN 20.0 NG/ML (3.1-17.5) Prothrombin Time 11.8 SEC (9.8-11.6) Neutrophils (%) (Auto) 75.3 % (16.0-70.0) Monocytes (%) (Auto) 11.5 % (0.0-8.0) Neutrophils # (Auto) 7.8 TH/MM3 (1.8-7.7) Monocytes # (Auto) 1.2 TH/MM3 (0-0.9) Potassium Level 3.4 MEQ/L (3.5-5.1) Vitamin B12 Level 1141 PG/ML (193-986) Test 10/09/16 05:35 Red Blood Count 3.99 MIL/MM3 (4.00-5.30) Hemoglobin 11.1 GM/DL (11.6-15.3) Hematocrit 33.7 % (35.0-46.0) Blood Urea Nitrogen 27 MG/DL (7-18) Creatinine 1.54 MG/DL (0.50-1.00) Estimat Glomerular Filtration 32 ML/MIN (>89) Rate Imaging Last Impressions Head CT 10/09/16 0000 Signed Impressions: Service Date/Time: Sunday, October 09, 2016 15:04 - CONCLUSION: No acute intracranial findings. Nomi Kincaid MD Abdomen/Pelvis CT 10/06/16 0000 Signed Impressions: Service Date/Time: September 21:22 - CONCLUSION: 1. Apparent narrowing of the distal ascending colon and hepatic flexure region with some dilatation of the more proximal ascending colon and cecum. This area appears to be possibly strictured. A focal mass is not seen. 2. Degenerative and postoperative change in the lumbar spine. 3. 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 4. Abdominal aortic aneurysm measuring 3.3 cm. There are atherosclerotic calcifications seen throughout the arterial system including the coronary arteries. Tommy Stone MD PE at Discharge General: Elderly female in no acute distress. Heart: Regular rate and rhythm. No murmur. Lungs: Clear to auscultation bilaterally. No wheezes, rales, or rhonchi. Breathing is nonlabored. Abdomen: Soft, nontender, nondistended. Extremities: No lower extremity edema. Psych: Alert, confused. Hospital Course The patient was admitted to the critical care service for management of respiratory insufficiency, GI bleed, and anemia. Gastroenterology was consulted. She was continued on IV Protonix. EGD and colonoscopy were done. 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 She received a total of 3 units PRBCs during the hospitalization. She was cleared for discharge by gastroenterology. She was advised to follow-up for EGD and colonoscopy in 8-12 weeks as well as capsule endoscopy as outpatient. Patient developed a headache. Head CT was unremarkable. Physical therapy worked with the patient during her hospitalization. She was quite weak and rehabilitation was recommended. The patient's family requested discharge home where they could take care of her instead of rehabilitation. Pt Condition on Discharge: Stable Discharge Disposition: Discharge Home Discharge Time: > 30 minutes Discharge Instructions DIET: Follow Instructions for: Heart Healthy Diet Activities you can perform: See Additionl Instruction Other Activity Instructions: Out of bed with assistance Follow up Referrals: Gastroenterology - 1 Week PCP Follow-up - 1 Week New Orders: CBC NO DIFF - 1 Week Physical Therapy New Medications: Ferrous Sulfate (Ferrous Sulfate) 325 Mg Tab 325 MG PO BID Nutritional Supplement #60 Ref 0 TAB Continued Medications: [id number]-[id number]-Vgbf (Calcium & Magnesium + Zinc) 334-134-5 Mg Tab 1 TAB PO DAILY TAB Donepezil (Donepezil) 5 Mg Tab 5 MG PO HS Dementia #[address] Ref [address] (Cymbalta DR) 20 Mg Capdr 20 MG PO DAILY #30 Ref 0 CAP Lisinopril (Lisinopril) 10 Mg Tab 10 MG PO DAILY #30 Ref 0 TAB Memantine Er (Namenda Xr) 28 Mg Caper 28 MG PO DAILY Alzheimer Disease #30 Ref 0 CAP Multiple Vitamins W/ Minerals (Centrum Silver Adult 50+) 1 Tab Tab 1 TAB PO DAILY Pantoprazole (Pantoprazole) 40 Mg Tab 40 MG PO BID Reflux #30 Ref 0 TAB Tramadol (Tramadol) 50 Mg Tab 50 MG PO Q4H PRN PAIN Ref 0 TAB Rafa Burns MD Oct 09, 2016 15:50
[2016-10-09] MEDS ORDERED: NYSTATIN SUSP 500,000 U/5 ML CUP PO PRN (16:40)
[2016-10-09] MEDS ORDERED: NYST1000 SWISH-SWAL (16:44)
== END 2016-10-09 17:10 | disposition home or self-care (01) | DRG 378 ==
LOC: NEPC 17:20 → NEDA 18:09 → HIMN 19:55
PROVIDERS: ADMIT Family Medicine; ATTEND Family Medicine
PROC: 30253N1 (ICD-10-PCS; 2016-10-05)
PROC: 0DB68ZX Excision of Stomach, Via Natural or Artificial Opening Endoscopic, Diagnostic (ICD-10-PCS; 2016-10-06)
PROC: 0DJD8ZZ Inspection of Lower Intestinal Tract, Via Natural or Artificial Opening Endoscopic (ICD-10-PCS; principal; 2016-10-06 15:20)
PROC: 0W3P8ZZ Control Bleeding in Gastrointestinal Tract, Via Natural or Artificial Opening Endoscopic (ICD-10-PCS; 2016-10-06 15:20)
DX: K31.811 Angiodysplasia of stomach and duodenum with bleeding (principal); D62 Acute posthemorrhagic anemia; N17.9 Acute kidney failure, unspecified; J84.10 Pulmonary fibrosis, unspecified; F03.90 Unspecified dementia, unspecified severity, without behavioral disturbance, psychotic disturbance, mood disturbance, and anxiety; E86.0 Dehydration; M41.9 Scoliosis, unspecified; K44.9 Diaphragmatic hernia without obstruction or gangrene; K21.9 Gastro-esophageal reflux disease without esophagitis; I10 Essential (primary) hypertension; E87.6 Hypokalemia; Z96.653 Presence of artificial knee joint, bilateral; H91.90 Unspecified hearing loss, unspecified ear; K64.4 Residual hemorrhoidal skin tags; K64.8 Other hemorrhoids; K29.70 Gastritis, unspecified, without bleeding
CPT/HCPCS: 36430; 70450; 74176; 80048; 80076; 82378; 82607; 82728; 82746; 82948; 83540; 83735; 84100; 85014; 85018; 85025; 85027; 85610; 85730; 86077; 86850; 86870; 86900; 86901; 86902; 86920; 86922; 87641; 88305; 94640; 94667; 99285; C9113; J0360; J1170; J2405; J2550; J7030; J7040; P9016; Q9963